=== PATIENT | male | born 1965 | race Asian ===

== ENCOUNTER 2021-03-06 15:39 | Emergency (ER) | payer OTHER ==
[~2021-03-06] VITALS: Ht 177.8 cm; Wt 83.9 kg
[2021-03-06 15:40] VITALS: BP_SYST 151
[2021-03-06] MEDS ORDERED: BACITRACIN 1 GM OINT TP ONE (16:00)
[2021-03-06] MEDS ORDERED: LIDOCAINE/EPI 1% 1:100000 20 ML VIAL INJ ONE (16:00)
[2021-03-06] MEDS ORDERED: BACI15OI13 TP (16:30)
[2021-03-06 16:50] VITALS: BP_SYST 151
== END 2021-03-06 16:50 | disposition home or self-care (01) ==
LOC: SED 15:39
DX: S91.312A Laceration without foreign body, left foot, initial encounter (principal); W27.8XXA Contact with other nonpowered hand tool, initial encounter; Y93.89 Activity, other specified; Y92.89 Other specified places as the place of occurrence of the external cause; Y99.8 Other external cause status
CPT/HCPCS: 99282